=== PATIENT | female | born 1960 | race Caucasian/White ===

== ENCOUNTER 2018-03-29 07:27 | Emergency (ER) | payer OTHER ==
[~2018-03-29] VITALS: Ht 165.1 cm; Wt 83.9 kg
--- NOTE | ~2018-03-29 | EKG ---
[place] [address] [facility] [place] [address] ELECTROCARDIOGRAM REPORT Name: JYOTHI BENNETT Room #: [facility]#: [id number] Admission: Attend Phys: Discharge: Date of : 60 Report #: [id number] THIS REPORT FOR: //name// [facility] ED Test Date: 2018-03-29 Test Time: 07:50:56 Pat Name: JYOTHI OLGUIN Department: Room: Gender: F Quality Control Head: kfriedt : 1960 Requested By: Jose Carlos Tello Order Number: [id number] MD: Bill Vargas Measurements Intervals [place] Rate: 99 P: 44 TN: 178 QRS: -4 QRSD: 89 T: 53 QT: 360 QTc: 462 Interpretive Statements Sinus rhythm Low voltage, precordial leads Nonspecific T abnrm, anterolateral leads No previous ECG available for comparison Electronically Signed On 03-29-2018 8:45:35 TIME CLERK by Bill Vargas [email or web address] <ELECTRONICALLY SIGNED> By: Bill Vargas MD, [facility] 03/29/18 0845 0750 0750 Bill Vargas MD, FACC /EPI
[2018-03-29 07:59] LABS: ABSOLUTE NEUTROPHILS 9.3 thou/uL (1.4-8.2); BASOPHILS 1.1 % (0.0-2.0); EOSINOPHILS 0.8 % (0.0-3.0); HEMATOCRIT 41.8 % (37.0-47.0); HEMOGLOBIN 14.3 gm/dL (12.0-15.0); MCH 30.9 pg (26.0-34.0); MCHC 34.4 g/dL (28.0-37.0); MCV 90.1 fL (80.0-100.0); MONOCYTES 6.7 % (1.0-8.0); PLATELET COUNT 426 thou/uL (150-400); POLYS 80.4 % (36.0-66.0); RBC 4.64 mil/uL (4.20-5.00); RDW 12.2 % (10.5-14.5); WBC 11.5 thou/uL (4.0-11.0)
[2018-03-29] MEDS ORDERED: LOSARTAN POTASS50 MG PO (08:11)
[2018-03-29 08:12] LABS: ANION GAP 11 mmol/L (7-16); BUN 10 mg/dL (7-18); CALCIUM 10.3 mg/dL (8.5-10.1); CHLORIDE 98 mmol/L (98-107); CO2 30 mmol/L (21-32); CREATININE 0.9 mg/dL (0.6-1.0); GLUCOSE 137 mg/dL (74-106); POTASSIUM 3.2 mmol/L (3.5-5.1); SODIUM 139 mmol/L (136-145)
[2018-03-29] MEDS ORDERED: HYDROCHLOROTHIA25 M2 PO (08:12)
[2018-03-29] MEDS ORDERED: LIPITOR 20 MG T20 M1 PO (08:12)
[2018-03-29 08:20] LABS: ALBUMIN 4.1 g/dL (3.4-5.0); LIPASE 119 U/L (73-393); SGOT 22 U/L (15-37); SGPT 24 U/L (30-65); TOTAL BILIRUBIN 0.9 mg/dL (<0.1-1.0); TOTAL PROTEIN 8.2 g/dL (6.4-8.2); TROPONIN-I <0.06 ng/mL (<0.06)
[2018-03-29] MEDS ORDERED: ZOFRAN ODT4 MG PO (08:57)
[2018-03-29] MEDS ORDERED: POTASSIUM20 PO (09:04)
[2018-03-29 09:45] VITALS: BP 135/74
== END 2018-03-29 09:47 | disposition home or self-care (01) ==
LOC: ER 07:27
PROVIDERS: Emergency Medicine
DX: R11.2 Nausea with vomiting, unspecified (principal); E87.6 Hypokalemia; R19.7 Diarrhea, unspecified; I10 Essential (primary) hypertension; Z88.0 Allergy status to penicillin; Z88.2 Allergy status to sulfonamides; Z98.890 Other specified postprocedural states; Z90.710 Acquired absence of both cervix and uterus